=== PATIENT | male | born 1990 | race Caucasian/White ===

== ENCOUNTER 2018-09-09 15:18 | Emergency (ER) | payer OTHER ==
--- NOTE | 2018-09-09 16:50 | ER Document Report ---
HPI - HPI Patient complains to provider of: worried he has flu Onset: Yesterday Pain Level: 4 Context: 27 yo worried he has the flu with stuffy nose, cough. No fever. No v/d. No chest pain or sob. Associated Symptoms: None Exacerbated by: Denies Relieved by: Denies - ROS ROS below otherwise negative: Yes Systems Reviewed and Negative: Yes All other systems reviewed and negative Past Medical History - General Information source: Patient - Social History Smoking Status: Never Smoker Lives with: Family Family History: Reviewed & Not Pertinent - Medical History Medical History: Negative Surgical Hx: Negative Vertical Provider Document - CONSTITUTIONAL Agree With Documented VS: Yes Exam Limitations: No Limitations General Appearance: No Apparent Distress - INFECTION CONTROL TRAVEL OUTSIDE OF THE [place] IN LAST 30 DAYS: No - HEENT HEENT: Pharyngeal Erythema - minmal. negative: Conjuctival Injection, Tympanic Membrane Red - NECK Neck: Supple. negative: Lymphadenopathy-Left, Lymphadenopathy-Right - RESPIRATORY Respiratory: Breath Sounds Normal, No Respiratory Distress - CARDIOVASCULAR Cardiovascular: Regular Rate, Regular Rhythm - NEURO Level of Consciousness: Alert Course - Re-evaluation Re-evalutation: 09/09/18 17:15 Nurse collected the influenza test and sent it prior to my seeing the patient or ordering this test because the patient wanted to be tested for influenza. 09/09/18 17:25 Influenza is negative - Vital Signs Vital signs: Temp Pulse Resp BP Pulse Ox 98.5 F 65 16 121/71 98 09/09/18 15:38 09/09/18 15:38 09/09/18 15:38 09/09/18 15:38 09/09/18 15:38 Discharge - Discharge Clinical Impression: Upper respiratory infection Qualifiers: URI type: unspecified viral URI Qualified Code(s): J06.9 - Acute upper respiratory infection, unspecified Condition: Good Disposition: HOME, SELF-CARE Instructions: Acetaminophen, Upper Respiratory Illness ([facility]) Additional Instructions: Drink plenty of fluids Tylenol up to 4000 mg a day for pain Rest Return to the emergency room for any chest pain or shortness of breath, trouble breathing, or worsening of the symptoms. Forms: Return to Work
[2018-09-09 17:25] LABS: A TYPE INFLUENZA AG NEGATIVE (NEGATIVE); B INFLUENZA AG NEGATIVE (NEGATIVE)
[2018-09-09 17:35] VITALS: BP 107/73
== END 2018-09-09 17:35 | disposition home or self-care (01) ==
LOC: ER 15:18
DX: J06.9 Acute upper respiratory infection, unspecified (principal); R09.89 Other specified symptoms and signs involving the circulatory and respiratory systems; R05 Cough
CPT/HCPCS: 87804; 99283

== ENCOUNTER 2020-09-18 09:36 | Emergency (ER) | payer SELFPAY ==
[2020-09-18 09:50] VITALS: BP 127/87
[2020-09-18] MEDS ORDERED: LIDOCAINE 2% VISCOUS SOLN 15 ML UDCUP PO ONE (10:08)
[2020-09-18] MEDS ORDERED: KETOROLAC TROMETHAMINE 60 MG/2 ML SDV IM ONE (10:08)
[2020-09-18] MEDS ORDERED: PENICILLIN V POTASSIUM 500 MG TABLET PO ONE (10:08)
--- NOTE | 2020-09-18 10:14 | ER Document Report ---
ED Oral Problem - General Chief Complaint: Toothache Stated Complaint: TOOTHACHE Time Seen by Provider: 09/18/20 10:01 Mode of Arrival: Ambulatory Information source: Patient Notes: 29-year-old male presented to ED for dental pain for tooth #18 #19 #20 and #21. #17 is missing. He does have dental decay to all of these teeth with gingivitis around these teeth. There is no obvious abscesses noted. We have treated him with penicillin VK Toradol IM and viscous lidocaine for his pain and discomfort. He has been instructed to follow-up with a primary care and a dentist. He has been given strict instructions on the viscous lidocaine is to be used every 4 hours. Patient is alert oriented respirations regular nonlabored lungs clear to auscultation. Constitutional: Negative for fever. HENT: The pain with dental cavities Eyes: Negative for visual changes. Cardiovascular: Negative for chest pain. Respiratory: Negative for shortness of breath. Gastrointestinal: Negative for abdominal pain, vomiting or diarrhea. Genitourinary: Negative for dysuria. Musculoskeletal: Negative for back pain. Skin: Negative for rash. Neurological: Negative for headaches, weakness or numbness. 10 point ROS negative except as marked above and in HPI. PHYSICAL EXAMINATION: GENERAL: Well-appearing, well-nourished and in no acute distress. HEAD: Atraumatic, normocephalic. EYES: Pupils equal round extraocular movements intact, conjunctiva are normal. ENT: Dental cavities to tooth #18 #19 #20 and #21 with gingivitis and redness around the teeth tenderness to palpation around the teeth NECK: Normal range of motion LUNGS: No respiratory distress Musculoskeletal: Normal range of motion NEUROLOGICAL: Normal speech, normal gait. PSYCH: Normal mood, normal affect. SKIN: Warm, Dry, normal turgor, no rashes or lesions noted. TRAVEL OUTSIDE OF THE [place] IN LAST 30 DAYS: No - HPI Patient complains to provider of: Toothache Onset: Last week Onset: Gradual Quality of pain: Pressure, Throbbing Severity: Moderate Pain Level: 3 Associated symptoms: Toothache Worsened by: Cold Relieved by: Nothing Similar symptoms previously: Yes Recently seen / treated by doctor/dentist: No - Related Data Allergies/Adverse Reactions: No Known Allergies Allergy (Verified 09/18/20 10:05) Past Medical History - Social History Smoking Status: Never Smoker Frequency of alcohol use: Occasional Drug Abuse: None Family History: Reviewed & Not Pertinent - Past Medical History Cardiac Medical History: Reports: None Pulmonary Medical History: Reports: Hx Bronchitis EENT Medical History: Reports: None Neurological Medical History: Reports: None Endocrine Medical History: Reports: None Renal/ Medical History: Reports: None Malignancy Medical History: Reports None GI Medical History: Reports: None Musculoskeletal Medical History: Reports Hx Musculoskeletal Trauma Skin Medical History: Reports None Psychiatric Medical History: Reports: None Traumatic Medical History: Reports: None Infectious Medical History: Reports: None Past Surgical History: Reports: Hx Oral Surgery - wisdom Physical Exam - Vital signs Vitals: Temp Pulse Resp BP Pulse Ox 98.6 F 78 18 127/87 H 98 09/18/20 09:47 09/18/20 09:47 09/18/20 09:47 09/18/20 09:47 09/18/20 09:47 Course - Vital Signs Vital signs: Temp Pulse Resp BP Pulse Ox 98.6 F 78 18 127/87 H 98 09/18/20 09:47 09/18/20 09:47 09/18/20 09:47 09/18/20 09:47 09/18/20 09:47 Discharge - Discharge Clinical Impression: Pain due to dental caries Condition: Stable Disposition: HOME, SELF-CARE Additional Instructions: TOOTHACHE: Your pain is due to dental decay. The tooth must be repaired in order for you to feel better. You will, therefore, be referred to a dentist. We do not have dentists on the staff at [facility]. Severe swelling or drainage around a tooth usually means a dental abscess. This also requires evaluation and treatment by the dentist, but antibiotics may be prescribed while awaiting dental treatment. You should be rechecked immediately if you develop major swelling of the face, increasing pain, a lump in the jaw or gums, headache, difficulty swallowing, or fever. PENICILLIN V K: You have been given a prescription for Penicillin VK. Your physician has determined that this is the best antibiotic for your condition. Pen VK can be taken with meals, however more of the antibiotic gets into the bloodstream if it's taken on an empty stomach. Penicillin usually has no side effects. However, allergy to penicillins is common. If you have had an allergic reaction to any drug of the penicillin fam louie, you should never take any other penicillin. Notify your doctor at once if you develop hives, itching, swelling, faintness, or shortness of breath. Toradol Injection You have been given an injection of ketorolac tromethamine (Toradol). This is an excellent, safe drug for pain control. It also has potent antiinflammatory action. You should have significant pain relief within about one hour. Toradol is not addicting and is non-sedating. It does not interfere with driving or work. Call or return if you develop itching, hives, shortness of breath, or rash. Ibuprofen you cannot start your ibuprofen and till 8 hours after the Toradol as these are the similar medicines. Ibuprofen is an excellent, safe drug for pain control. In addition, it has potent antiinflammatory effects which are beneficial, especially in the treatment of injuries, arthritis, or tendonitis. It's best to take ibuprofen with food. Persons with ulcer disease or allergy to aspirin should notify their physician of this before taking ibuprofen. Take the medication exactly as prescribed. Don't take additional doses unless instructed to do so by your doctor. If you develop wheezing, shortness of breath, hives, faintness, stomach pain, vomiting, or dark black stools, return for re-evaluation at once. You have been given a syringe of viscous lidocaine. Place a small amount of this on your finger and place it on the tooth and gums that are in pain. You can do this every 4 hours. Please do not do this any more often than every 4 hours as it can erode the skin. Can also numb the tongue and gums so be aware that it may make your tongue and gums numb do not chew on your tongue and gum. FOLLOW-UP CARE: You have been referred for follow-up care to the dentists listed below. Call the dentists office for an appointment as you were instructed or within the next two days. If you experience worsening or a significant change in your symptoms, notify the physician immediately or return to the Emergency Department at any time for re-evaluation. [facility] [address] [place] [address] [facility] [place] [address] [facility] [place] [id number] [facility] [address] [facility] [address] [email or web address] [address] [place] [address] Saturday- 8:00am to 5:00 pm Will see patients from other [facility]. Charges based on income and family size and accepts Medicare, Medicaid, and Insurances Will pull molars [facility] Student [facility] [address] Hours of Operation 8:00 am - 4:30 pm weekdays The following dental offices accept Medicaid: [facility] [address] Fierro Jus Norton, Jose, and Amandeep oral surgery Dr. Hi ([place]) Dr. Castro ([place]) [facility] Drs. Naik ([place]) Dr. Triplett ([place]) [facility] Dr. Hernández ([place]) Drs. Hernandez and ([place]) Medicaid Care Line Prescriptions: Penicillin V Potassium [Penicillin Vk 500 mg Tablet] 500 mg PO BID #20 tablet Forms: Elevated Blood Pressure
== END 2020-09-18 10:23 | disposition home or self-care (01) ==
LOC: ER 09:36
DX: K02.9 Dental caries, unspecified (principal); K05.10 Chronic gingivitis, plaque induced; K08.89 Other specified disorders of teeth and supporting structures
CPT/HCPCS: 99284; 96372; J1885; J3490